=== PATIENT | male | born 2000 | race Caucasian/White ===

== ENCOUNTER 2019-12-27 15:18 | Emergency (ER) | payer BC ==
[2019-12-27 15:38] VITALS: BP 134/62
[2019-12-27] MEDS ORDERED: Ondansetron ODT TAB* 4 MG PO ONE (15:53)
--- NOTE | 2019-12-27 16:00 | UC ---
Head Injury HPI - HPI Summary HPI Summary: 19-year-old male comes in with a chief complaint of head injury. On December 25, 2019 at about 5 PM in the afternoon patient reports he was jumping over a fence sure got caught on the fence and the fell on to his head. Remembers striking his head. The next thing he remembered was waking up in his bed about midnight of December 25, 2019. Patient went back to sleep and woke up in the morning of December 26, 2019 headache feeling nausea. He had some photophobia initially. He did take some Advil which did not help the symptoms. Today the symptoms are not as bad but he continues to feel nauseous and having a headache. Symptoms get worse with using his phone. He is nauseous but has not vomited. No focal weakness or numbness. Patient does have facial pain mostly on the left maxillary area but also on the right axillary area. He also has neck pain and hurts more when he moves his neck. He has multiple abrasions on his hands that his friends told him occurred when they helped him back to his dwelling and he kept falling. - History Of Current Complaint Chief Complaint: UCHeadInjury Stated Complaint: HEAD INJURY (12/24) HEAD AND NECK PAIN Time Seen by Provider: 12/27/19 15:42 Pain Intensity: 6 - Allergies/Home Medications Allergies/Adverse Reactions: Allergies Allergy/AdvReac Type Severity Reaction Status Date / Time No Known Allergies Allergy Verified 12/27/19 15:31 Home Medications: Home Medications Amoxicillin/Clavulanate TAB* [Augmentin TAB 875*] 875 mg PO BID #20 tab [Rx] Fluticasone NASAL SPRAY 50MCG* [Flonase NASAL SPRAY 50MCG*] 2 spray BOTH NARES DAILY #1 btl 12/27/19 [Rx] Ondansetron ODT TAB* [Zofran 4 MG Odt TAB*] 4 mg PO Q6H PRN #10 tab.odt [Rx] PMH/Surg Hx/FS Hx/Imm Hx Previously Healthy: Yes Other Neurological History: has had concussions in the past - Surgical History Surgical History: None - Family History Known Family History: Positive: Non-Contributory - Social History Alcohol Use: Occasionally Substance Use Type: None Smoking Status (MU): Never Smoked Tobacco Review of Systems All Other Systems Reviewed And Are Negative: Yes Constitutional: Positive: Other - se hpi Skin: Positive: Other - see hpi Eyes: Positive: Photophobia ENT: Positive: Other - see hpi Respiratory: Positive: Negative Cardiovascular: Positive: Negative Gastrointestinal: Positive: Nausea Motor: Positive: Negative Neurovascular: Positive: Negative Musculoskeletal: Positive: Other: - see hpi Neurological/Mental Status: Positive: Headache Psychological: Positive: Negative Is Patient Immunocompromised?: No Physical Exam Triage Information Reviewed: Yes Appearance: Well-Appearing, No Pain Distress, Well-Nourished Vital Signs: Initial Vital Signs Temp 98.3 F 12/27/19 15:31 Pulse 107 12/27/19 15:31 Resp 16 12/27/19 15:31 BP 134/62 12/27/19 15:31 Pulse Ox 100 12/27/19 15:31 Vital Signs Reviewed: Yes Eye Exam: Normal Eyes: Positive: Conjunctiva Clear, Other: - PERRLA EOMI. No photophobia ENT: Positive: TMs normal - No hemotympanum, Other - Swelling and tenderness over the left maxillary face. Is also some swelling and tenderness on the right side over the maxillary. Neck: Positive: Other: - Tenderness to palpation in the paraspinous muscles and in the midline of the C-spine. Respiratory: Positive: Lungs clear, Normal breath sounds, No respiratory distress Cardiovascular: Positive: RRR Musculoskeletal: Positive: Strength Intact, ROM Intact Neurological: Positive: Alert, Muscle Tone Normal Psychological: Positive: Age Appropriate Behavior Skin: Positive: Other - Abrasions on both palms Head Injury Course/Dx - Course Course Of Treatment: Operations Scheduler: Wilotn Kate ([id number]) Middle School Music Teacher: ZOË (ZOË) Report Date: 12/27/2019 16:56:00 Report Status: Final Start of Report Content Patient Name: DAVID FRANCISCO Medical Record#: [id number] Ordering Physician: Delbert Simmons MD Acct.#: [id number] : 05/2000 Age: 19 Sex: M Location: [facility] Exam Date: 12/27/19 1553 ADM Status: REG ER Order Information: CT SPINE CERVICAL W/O Accession Number: [id number] CPT: 22277 INDICATION: Pain. COMPARISON: There are no prior studies available for comparison. TECHNIQUE: Contiguous axial sections were obtained from the skull base through the T2 vertebra. Images were reconstructed in the sagittal and coronal planes. FINDINGS: There is normal cervical lordotic curvature without spinal listhesis. The craniovertebral junction and facets are anatomically aligned. The bone mineralization is within normal limits. The vertebral body heights are maintained. No fracture is identified. Intervertebral disc heights are grossly preserved. The paraspinal and prevertebral soft tissues are within normal limits. There is no severe osseous encroachment of the spinal canal or neural foramina. IMPRESSION: No fracture or traumatic malalignment of cervical spine. <Electronically signed by Wilton Kate MD in OV> 3 Dictated By: Wilton Kate MD Dictated Date/Time: 12/27/19 1648 Transcribed Date/Time: 12/27/198 Copy to: CC:No Primary Care Phys,NOPCP ; Delbert Simmons MD Imaging - [facility] Imaging [facility] [address] [address] ph [phone]) ph ) ph ([phone]) End of Report Content Operations Scheduler: Johnathon Dawn C ([id number]) Middle School Music Teacher: Ugo CAMP) Report Date: 12/27/2019 16:59:00 Report Status: Final ====== Start of Report Content Patient Name: DAVID FRANCISCO Medical Record#: [id number] Ordering Physician: Delbert Simmons MD Acct.#: [id number] : 2000 Age: 19 Sex: M Location: URGENT [facility] Exam Date: 12/27/19 1553 ADM Status: [facility] ER Order Information: CT MAXILLOFACIAL W/O Accession Number: [id number] CPT: 04771 INDICATION: Blurred vision and mental status change post fall. Neck stiffness. COMPARISON: No relevant prior exams available on the [facility] PACS for comparison. TECHNIQUE: Multidetector CT base of the skull through mandible without contrast. Multiplanar reformation. REPORT: Mild soft tissue swelling over the RIGHT malar eminence. No loculated soft tissue plane hematoma evident. Normal size limits bilateral cervical lymph nodes visualized. No lymphadenopathy based on short axis criteria. Subtle cortical contour irregularity at the bridge of the nose appears to represent artifact due to motion. The orbital and maxillary sinus margins, zygomatic arches, lamina papyracea, base of the maxilla, pterygoid plates, and nasal bones are intact. The mandible is intact. Normal temporal mandibular joint alignment. Negative for soft tissue plane hematoma or subcutaneous gas. Unremarkable orbital structures. There is mucosal thickening at the paranasal sinuses. 3 cm mucous retention cyst or polyp at the LEFT maxillary sinus. Mucosal thickening narrows the infundibula of the bilateral anterior ostiomeatal units. Negative for paranasal sinus fluid levels. Clear mastoid air spaces. IMPRESSION: #. Negative for maxillofacial fracture. #. Chronic paranasal sinus disease. <Electronically signed by Johnathon Dawn MD in OV> 12/27/191654 Dictated By: Johnathon Dawn MD Dictated Date/Time: 12/27/191647 Transcribed Date/Time: 12/27/191647 Copy to: CC:No Primary Care Phys,NOPCP ; Delbert Simmons MD Imaging - [facility] Ur[facility] [address] [place] [address] [address] [address] ph ([phone]) ph [phone]) ph ([phone]) End of Report Content Operations Scheduler: Wilton Kate ([id number]) Middle School Music Teacher: ZOË ([place]) Report Date: 12/27/2019 16:53:00 Report Status: Final Start of Report Content Patient Name: DAVID FRANCISCO Medical Record#: [id number] Ordering Physician: Delbert Simmons MD Acct.#: [id number] : 05/2000 Age: 19 Sex: M Location: [facility] Exam Date: 12/27/19 1553 ADM Status: REG ER Order Information: CT BRAIN WO Accession Number: [id number] CPT: 42348 INDICATION: Headache. Blurred vision. COMPARISON: There are no relevant prior studies available for comparison. TECHNIQUE: Contiguous axial sections of the brain were obtained from the skull base to the vertex without contrast. FINDINGS: There is no hemorrhagic focus, mass effect or midline shift. The payne-white matter differentiation is grossly maintained without abnormal cerebral edema. Periventricular hypoattenuation, without mass effect, is nonspecific. The ventricles are of conventional size and configuration. The basal cisterns are patent. There is no abnormal extra axial collection. The globes and orbits are symmetric. There is moderate to severe dorsal thickening in the maxillary and ethmoid sinuses. IMPRESSION: 1. No acute intracranial abnormality. 2. Moderate to severe mucosal thickening in the maxillary and ethmoid sinuses. <Electronically signed by Wilton Kate MD in OV> 12/27/191648 Dictated By: Wilton Kate MD Dictated Date/Time: 12/27/191644 Transcribed Date/ Time: 12/27/191644 Copy to: CC:No Primary Care Phys,NOPCP ; Delbert Simmons MD Imaging - [facility] Imaging - [place] [facility] Imaging - [facility] [address] [address] ph ([phone]) ph ([phone]) ph ([phone]) End of Report Content I discussed the CT reports with the patient. Also discussed how to treat concussion. Patient will follow-up with sports medicine for his concussion. On the CT sinus congestion and a cyst were seen. Patient will follow-up with ENT for the sinus cyst. We'll treat for sinusitis at this time. I let the patient know that if he got worse he needed to get further evaluation and care and emergency Department. - Differential Dx/Diagnosis Provider Diagnosis: Concussion, Head injury, Facial contusion, Neck pain, Sinusitis, Maxillary sinus cyst Discharge ED - Sign-Out/Discharge Documenting (check all that apply): Patient Departure All imaging exams completed and their final reports reviewed: Yes - Discharge Plan Condition: Stable Disposition: HOME Prescriptions: Amoxicillin/Clavulanate TAB* [Augmentin TAB 875*] 875 mg PO BID #20 tab Fluticasone NASAL SPRAY 50MCG* [Flonase NASAL SPRAY 50MCG*] 2 spray BOTH NARES DAILY #1 btl Ondansetron ODT TAB* [Zofran 4 MG Odt TAB*] 4 mg PO Q6H PRN #10 tab.odt PRN Reason: Nausea Patient Education Materials: Sinusitis (ED), Concussion (ED), Facial Contusion (ED), Acute Neck Pain (ED) Forms: *Physical Education Release, *School Release Referrals: [facility] [Provider Group] [facility] [Provider Group] [facility]] Mark Melendez MD [Medical Doctor] - Additional Instructions: FOLLOW UP WITH [facility] FOR YOUR CONCUSSION. FOLLOW UP WITH YOUR ENT FOR YOUR SINUS CYST. GET REEVALUATED SOONER IF NOT IMPROVED OR WORSE; PAIN, WEAKNESS, NUMBNESS, UNEXPLAINED VOMITING, CHANGE IN VISION OR SPEECH, YOU FEEL ILL OR ANY QUESTIONS OR CONCERNS. - Billing Disposition and Condition Condition: STABLE Disposition: Home
== END 2019-12-27 17:21 | disposition home or self-care (01) ==
LOC: UCCORT 15:18
DX: S00.93XA Contusion of unspecified part of head, initial encounter (principal); S00.83XA Contusion of other part of head, initial encounter; S09.90XA Unspecified injury of head, initial encounter; W18.30XA Fall on same level, unspecified, initial encounter; Y93.39 Activity, other involving climbing, rappelling and jumping off; Y92.9 Unspecified place or not applicable; M54.2 Cervicalgia; J32.9 Chronic sinusitis, unspecified; J34.1 Cyst and mucocele of nose and nasal sinus
CPT/HCPCS: 70450; 70486; 72125; 99202; A9270-GY; G0463